=== PATIENT | male | born 1960 ===

== ENCOUNTER 2018-11-23 09:27 | Outpatient (CLI) | payer OTHER ==
[~2018-11-23] VITALS: Ht 177.8 cm; Wt 81.6 kg
== END 2018-11-23 09:50 | disposition home or self-care (01) ==
LOC: OFIC 805 09:27
DX: H91.90 Unspecified hearing loss, unspecified ear (principal); H61.23 Impacted cerumen, bilateral

== ENCOUNTER 2020-06-30 13:23 | Emergency (ER) | payer OTHER ==
[~2020-06-30] VITALS: Ht 177.8 cm; Wt 90.7 kg
[2020-06-30] MEDS ORDERED: KETO10TA2 PO (15:26)
[2020-06-30] MEDS ORDERED: CLEOCIN HCL300 MG PO (15:26)
== END 2020-06-30 15:58 | disposition home or self-care (01) ==
LOC: ER 13:23
DX: K04.7 Periapical abscess without sinus (principal)